=== PATIENT | female | born 1950 | race African-American/Black ===

== ENCOUNTER 2021-05-27 15:35 | Emergency (ER) | payer OTHER ==
[~2021-05-27] VITALS: Ht 162.6 cm; Wt 90.7 kg
[2021-05-27 16:33] LABS: ABSOLUTE NEUTROPHILS 5.7 thou/uL (1.4-8.2); BASOPHILS 1.2 % (0.0-2.0); EOSINOPHILS 1.5 % (0.0-3.0); HEMATOCRIT 40.6 % (37.0-47.0); HEMOGLOBIN 13.3 gm/dL (12.0-15.0); LYMPHOCYTES 28.6 % (24.0-44.0); MCH 31.7 pg (26.0-34.0); MCHC 32.8 g/dL (28.0-37.0); MCV 96.6 fL (80.0-100.0); PLATELET COUNT 398 thou/uL (150-400); POLYS 60.7 % (36.0-66.0); RDW 14.5 % (10.5-14.5); WBC 9.3 thou/uL (4.0-11.0)
[2021-05-27 16:44] LABS: CREATININE 0.8 mg/dL (0.6-1.0); POTASSIUM 3.6 mmol/L (3.5-5.1)
[2021-05-27 17:02] LABS: CALCIUM 8.7 mg/dL (8.5-10.1)
[2021-05-27 17:22] LABS: URINE BILIRUBIN NEGATIVE (Negative); URINE BLOOD NEGATIVE (Negative); URINE CLARITY CLEAR; URINE COLOR YELLOW; URINE GLUCOSE-RANDOM* NEGATIVE (Negative); URINE KETONES NEGATIVE (Negative); URINE LEUKOCYTES-REFLEX 1+ (Negative); URINE NITRITE-REFLEX NEGATIVE (Negative); URINE PROTEIN (DIPSTICK) NEGATIVE (Negative); URINE UROBILINOGEN 0.2 E.U./dl (0.2-1.0)
[2021-05-27 17:32] LABS: SQUAMOUS >10 Many /LPF (0-3)
[2021-05-27 17:33] LABS: CASTS None Seen /LPF (None Seen); URINE RBC None Seen /HPF (NONE SEEN); URINE WBC-REFLEX 0-5 Rare /HPF (0-5)
[2021-05-27 17:34] LABS: BACTERIA-REFLEX None Seen /HPF (None Seen); CRYSTALS None Seen /LPF (None Seen)
[2021-05-27] MEDS ORDERED: ZPAK PO (17:41)
[2021-05-27 17:42] VITALS: BP 151/77
--- NOTE | 2021-05-28 11:32 | EKG ---
[address] [address] ELECTROCARDIOGRAM REPORT Name: YOVANY ONEAL Room #: DEP JOON Urias#: [id number] Admission: 05/27/21 Attend Phys: Discharge: 05/27/21 Date of : 52 Report #: [id number] [facility] ED Test Date: 2021-05-27 Test Time: 15:47:31 Pat Name: YOVANY ONEAL Department: Room: Gender: F [employer] Chair: janelle : 1950 Requested By: Franklyn Beyer Order Number: [id number] MD: Eddy Lopez Measurements Intervals [place] Rate: 79 P: 63 AK: 144 QRS: 12 QRSD: 92 T: 79 QT: 387 QTc: 444 Interpretive Statements Sinus rhythm No previous ECG available for comparison Electronically Signed On 05-28-2021 11:31:48 CDT by Eddy Lopez [email or web address] <ELECTRONICALLY SIGNED> By: Eddy Lopez MD, [facility] 05/28/21 1131 [id number] Eddy Lopez MD, FACC /EPI
== END 2021-05-27 17:49 | disposition home or self-care (01) ==
LOC: ER 15:35
PROVIDERS: Nurse Practitioner
DX: R06.00 Dyspnea, unspecified (principal); R05 Cough; R06.02 Shortness of breath; R53.1 Weakness; R42 Dizziness and giddiness; Z20.822 Contact with and (suspected) exposure to COVID-19

== ENCOUNTER 2021-08-14 16:14 | Emergency (ER) | payer OTHER ==
[~2021-08-14] VITALS: Ht 167.6 cm; Wt 81.7 kg
[~2021-08-14 16:14] MED LIST: ZPAK PO
[2021-08-14] MEDS ORDERED: HYDROCODON-ACE1 EAC7 PO (18:55)
[2021-08-14 19:11] VITALS: BP 162/100
[2021-08-14] MEDS ORDERED: DOXYCYCLINE 10100 MG PO (19:12)
== END 2021-08-14 19:14 | disposition home or self-care (01) ==
LOC: ER 16:14
DX: L02.511 Cutaneous abscess of right hand (principal)